=== PATIENT | male | born 2000 | race Caucasian/White ===

== ENCOUNTER 2021-08-05 01:55 | Emergency (ER) | payer OTHER ==
[2021-08-05 02:17] VITALS: TEMP 98; BMI 27.1
[2021-08-05] MEDS ORDERED: ACETAMINOPHEN 325 MG TABLET (FP) PO ONE (02:46)
[2021-08-05] MEDS ORDERED: ACETAMINOPHEN 325 MG TABLET (FP) ONE (02:58)
[2021-08-05 04:07] LABS: BASO % 0.6 % (0-2.0); EOS % 1.3 % (0-4.5); HEMOGLOBIN 15.1 GM/dL (11.7-16.9); LYMPH % 38.7 % (8-40); MCH 28.6 pg (25.7-33.7); MCHC 34.3 g/dl (32.0-35.9); MEAN CELL VOLUME 83.3 fl (80-96); MONO % 10.8 % (3.8-10.2); NEUT % 48.6 % (42.8-82.8); PLATELET COUNT 225 10^3/uL (134-434); RBC 5.28 M/mm3 (4.00-5.60); RDW 12.7 % (11.9-15.9)
[2021-08-05 04:29] LABS: CHLORIDE 107 mmol/L (98-107); SODIUM 142 mmol/L (136-145)
[2021-08-05 04:31] LABS: ANION GAP 5 MMOL/L (8-16); BLOOD UREA NITROGEN 15.6 mg/dL (7-18); CALCIUM 9.3 mg/dL (8.5-10.1); CO2 30 mmol/L (21-32); GLUCOSE,RANDOM 93 mg/dL (74-106)
[2021-08-05 04:34] LABS: CREATININE 0.9 mg/dL (0.55-1.3); SGOT/AST 38 U/L (15-37); SGPT/ALT 131 U/L (13-61)
[2021-08-05 04:36] LABS: BILIRUBIN,TOTAL 0.4 mg/dL (0.2-1); TOT PROT 7.3 g/dl (6.4-8.2)
[2021-08-05 04:37] LABS: ALK PHOS 192 U/L (45-117)
[2021-08-05 05:27] VITALS: BP 123/83; PULSE 74
== END 2021-08-05 05:28 | disposition home or self-care (01) ==
LOC: JER 01:55
DX: R07.9 Chest pain, unspecified (principal)
CPT/HCPCS: 36415; 71046-TC-FY; 80053; 84484; 85025; 85379; 93005; 93010; 99285-25

== ENCOUNTER 2021-12-09 14:47 | Emergency (ER) | payer SELFPAY ==
[2021-12-09 14:56] VITALS: TEMP 99.7; BMI 25.7
[2021-12-09] MEDS ORDERED: morphine CARPU-JECT 4 MG/1 ML DISP.SYRIN IVPUSH ONE (15:31)
[2021-12-09] MEDS ORDERED: morphine SULFATE 4 MG/ML VIAL ONE (15:39)
[2021-12-09] MEDS ORDERED: KETAMINE HCL 200 MG/20 ML VIAL IVPUSH ONE ×3 (16:53→17:52)
[2021-12-09 16:58] LABS: BASO % 0.3 % (0-2.0); EOS % 0.2 % (0-4.5); HEMATOCRIT 44.8 % (35.4-49); HEMOGLOBIN 15.1 GM/dL (11.7-16.9); LYMPH % 13.6 % (8-40); MCH 28.3 pg (25.7-33.7); MCHC 33.8 g/dl (32.0-35.9); MEAN CELL VOLUME 83.8 fl (80-96); MEAN PLT VOLUME 9.2 fl (7.5-11.1); MONO % 7.7 % (3.8-10.2); NEUT % 78.2 % (42.8-82.8); PLATELET COUNT 282 10^3/uL (134-434); RBC 5.34 M/mm3 (4.00-5.60); RDW 12.5 % (11.9-15.9); WHITE BLOOD COUNT 12.5 K/mm3 (4.0-10.0)
[2021-12-09 17:15] LABS: ALBUMIN 4.2 g/dl (3.4-5.0); BLOOD UREA NITROGEN 13.7 mg/dL (7-18); CALCIUM 9.7 mg/dL (8.5-10.1)
[2021-12-09 17:18] LABS: CREATININE 0.8 mg/dL (0.55-1.3)
[2021-12-09 17:20] LABS: BILIRUBIN,TOTAL 0.9 mg/dL (0.2-1); TOT PROT 8.1 g/dl (6.4-8.2)
[2021-12-09] MEDS ORDERED: KETAMINE HCL 200 MG/20 ML VIAL ONE (17:55)
[2021-12-09] MEDS ORDERED: CLINDAMYCIN HCL 300 MG CAPSULE PO ONE (18:30)
[2021-12-09] MEDS ORDERED: CLINDAMYCIN HCL 150 MG CAPSULE (FP) ONE (18:57)
[2021-12-09] MEDS ORDERED: CLINDAMYCIN HCL 150 MG CAPSULE (FP) PO ONE (19:00)
[2021-12-09 20:58] VITALS: BP 118/70; PULSE 96
== END 2021-12-09 20:57 | disposition home or self-care (01) ==
LOC: JER 14:47
PROC: 3E033GC Introduction of Other Therapeutic Substance into Peripheral Vein, Percutaneous Approach (ICD-10-PCS; principal; 2021-12-09)
DX: L02.31 Cutaneous abscess of buttock (principal)
CPT/HCPCS: 36415; 80053; 85025; 99284-25